=== PATIENT | male | born 1955 | race Caucasian/White ===

== ENCOUNTER 2016-07-24 18:11 | Emergency (ER) | payer MEDICAID, OTHER ==
[~2016-07-24] VITALS: Ht 172.7 cm; Wt 79.0 kg
[~2016-07-24 18:11] MED LIST: DILT180C56 PO; LISI-360 PO; LORC10TA PO
[2016-07-24 18:33] VITALS: BP 105/67; PULSE 90; RESP 18; TEMP 98.5; O2SAT 96
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
[2016-07-24 22:04] LABS: AUTOMATED NEUTROPHIL # 5.9 TH/MM3 (1.8-7.7); BASOPHIL % 0.4 % (0.0-2.0); EOSINOPHIL # 0.5 TH/MM3 (0-0.4); EOSINOPHIL % 4.1 % (0.0-4.0); HEMATOCRIT 48.5 % (39.0-51.0); HEMO FLAGS DIFF FINAL; LYMPH % 37.6 % (9.0-44.0); LYMPHOCYTE # 4.4 TH/MM3 (1.0-4.8); MEAN CELL VOLUME 93.2 FL (80.0-100.0); MEAN CORPUSCULAR HEMOGLOBIN 31.9 PG (27.0-34.0); MEAN CORPUSCULAR HGB CONC 34.2 % (32.0-36.0); MONO % 7.3 % (0.0-8.0); NEUT % 50.6 % (16.0-70.0); PLATELET COUNT 224 TH/MM3 (150-450); RED CELL DISTRIBUTION WIDTH 13.6 % (11.6-17.2); WHITE BLOOD COUNT 11.6 TH/MM3 (4.0-11.0)
[2016-07-24 22:37] LABS: ANION GAP 5 MEQ/L (5-15); AST (GOT) 48 U/L (15-37); BICARBONATE 26.8 MEQ/L (21.0-32.0); BLOOD UREA NITROGEN 19 MG/DL (7-18); CHLORIDE 106 MEQ/L (98-107); GLOMERULAR FILTRATION RATE 107 ML/MIN (>89); SODIUM (NA) 138 MEQ/L (136-145)
[2016-07-24 22:38] LABS: ALT (GPT) 70 U/L (12-78)
[2016-07-24 22:40] LABS: ALKALINE PHOSPHATASE 133 U/L (45-117); TOTAL BILIRUBIN ADULT 0.3 MG/DL (0.2-1.0)
[2016-07-24] MEDS ORDERED: CLON2TAB PO (22:56)
[2016-07-24] MEDS ORDERED: GABA100C4 PO (22:56)
[2016-07-24] MEDS ORDERED: DILA100C PO (22:56)
[2016-07-24] MEDS ORDERED: FOLI400T PO (22:56)
[2016-07-24] MEDS ORDERED: SERO100T PO (22:56)
[2016-07-24] MEDS ORDERED: MOBI15TA PO (22:56)
[2016-07-24] MEDS ORDERED: BUSP15TA PO (22:56)
[2016-07-24] MEDS ORDERED: VENL75XR PO (22:56)
[2016-07-24] MEDS ORDERED: LACT10SO PO (22:56)
[2016-07-25 01:34] LABS: BLOOD, URINE NEG (NEG); GLUCOSE,URINE NEG (NEG); KETONE, URINE NEG (NEG); NITRITE,URINE NEG (NEG); PH, URINE 6.5 (5.0-8.5); URINE COLOR YELLOW (YELLW/STRAW)
[2016-07-25 01:40] LABS: AMPHETAMINE, URINE NEG (NEG); BARBITURATES, URINE NEG (NEG); COCAINE, URINE NEG (NEG); COMMENT (UR) CULT NOT INDICATED; CULTURE IF INDICATED CULT NOT INDICATED
[2016-07-25 07:30] VITALS: BP 104/55; PULSE 74; RESP 18; O2SAT 97
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
--- NOTE | 2016-07-25 11:32 | EKG ---
Date Performed: 07/24/2016 Time Performed: 22:08:17 PTAGE: 61 years EKG: Sinus rhythm NORMAL ECG PREVIOUS TRACING : 08/24/2010 06.11 Compared to prior tracing no significant change, previously SVT DOCTOR: Cecilio Ray Interpretating Date/Time 07/25/2016 11:31:05
== END 2016-07-25 11:41 | disposition home or self-care (01) ==
LOC: NEPD 18:11
DX: F43.25 Adjustment disorder with mixed disturbance of emotions and conduct (principal); I48.91 Unspecified atrial fibrillation; B19.20 Unspecified viral hepatitis C without hepatic coma; F17.200 Nicotine dependence, unspecified, uncomplicated; Z79.899 Other long term (current) drug therapy
CPT/HCPCS: 80053; 80307; 81001; 85025; 93005